=== PATIENT | female | born 1995 | race Caucasian/White ===

== ENCOUNTER 2017-04-01 18:54 | Emergency (ER) | payer OTHER ==
[~2017-04-01] VITALS: Ht 175.3 cm; Wt 69.3 kg
[~2017-04-01 18:54] MED LIST: BCPILLS PO; IBUP-1050 PO; SUMA50TA15 PO
[2017-04-01 19:00] VITALS: TEMP 37; Ht 175.3 cm; Wt 69.3 kg
[2017-04-01] MEDS ORDERED: KETOROLAC TROMETHAMINE 30 MG/ML VIAL IV STA (19:17)
[2017-04-01] MEDS ORDERED: LORAZEPAM 2 MG/ML 1 ML VIAL IV STA (19:17)
[2017-04-01] MEDS ORDERED: SODIUM CHLORIDE 0.9% 1000ML 1,000 ML IV STA ×2 (19:17)
[2017-04-01] MEDS ORDERED: METOCLOPRAMIDE HCL INJ 5 MG/ML 2 ML VIAL IV STA (19:17)
--- NOTE | 2017-04-01 19:32 | EMERGENCY ROOM VISIT NOTE ---
History Report prepared by Angelaibe: Selina Carlton Under the Supervision of: Dr. Akin Guaman M.D. First contact with patient: 19:06 Chief Complaint: NEURO SYMPTOMS Stated Complaint: DOUBLE VISION History of Present Illness The patient is a 21 year old female who presents to the Emergency Room with complaints of intermittent double vision beginning an hour and a half ago. The patient has a history of migraines. She notes taking her migraine medication last night and states she woke up this morning feeling normal. She states she is having a difficult time focusing on things in front of her. She notes some jaw tightness and feels like her tongue is too big for mouth. These symptoms started at the same time as her double vision. She denies any fever, cough, nausea, vomiting or urinary burning. The patient currently has her period. The patient notes drinking one alcohol beverage 4 hours ago. Per mother, the patient has a history of some occasional anxiety and panic attacks. Source of History: patient Onset: hour an a half ago Position: eye (bilateral) Quality: other (double vision) Associated Symptoms: No fevers, No cough, No nausea, No vomiting, No urinary symptoms Note: She notes some jaw tightness and feeling as if her tongue feels too big for mouth Review of Systems See HPI for pertinent positives and negatives. A total of ten systems were reviewed and were otherwise negative. Past Medical & Surgical Medical Problems: (1) Migraine Surgical Problems: (1) History of wisdom tooth extraction Family History Patient reports no known family medical history. Social History Smoking Status: Never Smoker Alcohol Use: occasionally Drug Use: none Marital Status: single Housing Status: lives with roommate Occupation Status: [employer] student Current/Historical Medications Scheduled Control Pills ( Control Pills), 1 TAB PO DAILY Scheduled PRN Ibuprofen (Advil), 200-600 MG PO Q6H PRN for Pain Sumatriptan Succinate (Imitrex), 50 MG PO UD PRN for Migraine Allergies Coded Allergies: No Known Allergies (Unverified , 04/03/16) Physical Exam Vital Signs Date Time Temp Pulse Resp B/P (MAP) Pulse Ox O2 Delivery O2 Flow Rate FiO2 04/01/17 21:37 87 16 126/68 99 04/01/17 20:37 80 74 122/69 99 04/01/17 19:00 37.0 99 22 150/100 100 Room Air Physical Exam GENERAL: Awake, alert, anxious-appearing, tremulous in no distress HENT: Normocephalic, atraumatic. Oropharynx unremarkable. EYES: Normal conjunctiva. Sclera non-icteric. No dysconjugate gaze with extraocular movements, no nystagmus. NECK: Supple. No nuchal rigidity. FROM. No JVD. RESPIRATORY: Clear to auscultation. CARDIAC: Regular rate, normal rhythm. Extremities warm and well perfused. Pulses equal. ABDOMEN: Soft, non-distended. No tenderness to palpation. No rebound or guarding. No masses. RECTAL: Deferred. MUSCULOSKELETAL: Chest examination reveals no tenderness. The back is symmetrical on inspection without obvious abnormality. There is no CVA tenderness to palpation. No joint edema. LOWER EXTREMITIES: Calves are equal size bilaterally and non-tender. No edema. No discoloration. NEURO: Normal sensorium. No sensory or motor deficits noted. SKIN: No rash or jaundice noted. Medical Decision & Procedures Laboratory Results 04/01/17 19:30 Red Blood Count 5.08, Mean Corpuscular Volume 88.0, Mean Corpuscular Hemoglobin 30.9, Mean Corpuscular Hemoglobin Concent 35.1, Mean Platelet Volume 10.5, Neutrophils (%) (Auto) 55.6, Lymphocytes (%) (Auto) 35.7, Monocytes (%) (Auto) 6.5, Eosinophils (%) (Auto) 1.8, Basophils (%) (Auto) 0.3, Neutrophils # (Auto) 4.86, Lymphocytes # (Auto) 3.12, Monocytes # (Auto) 0.57, Eosinophils # (Auto) 0.16, Basophils # (Auto) 0.03 04/01/17 19:30 Test 04/01/17 19:20 04/01/17 19:30 Urine Color YELLOW Urine Appearance CLEAR (CLEAR) Urine pH 6.0 (4.5-7.5) Urine Specific [place] 1.015 (1.000-1.030) Urine Protein NEG (NEG) Urine Glucose (UA) NEG (NEG) Urine Ketones NEG (NEG) Urine Occult Blood NEG (NEG) Urine Nitrite NEG (NEG) Urine Bilirubin NEG (NEG) Urine Urobilinogen NEG (NEG) Urine Leukocyte Esterase NEG (NEG) Urine Test NEG (NEG) White Blood Count 8.75 K/uL (4.8-10.8) Red Blood Count 5.08 M/uL (4.2-5.4) Hemoglobin 15.7 g/dL (12.0-16.0) Hematocrit 44.7 % (37-47) Mean Corpuscular Volume 88.0 fL (80-100) Mean Corpuscular Hemoglobin 30.9 pg (25-34) Mean Corpuscular Hemoglobin Concent 35.1 g/dl (32-36) Platelet Count 223 K/uL (130-400) Mean Platelet Volume 10.5 fL (7.4-10.4) Neutrophils (%) (Auto) 55.6 % Lymphocytes (%) (Auto) 35.7 % Monocytes (%) (Auto) 6.5 % Eosinophils (%) (Auto) 1.8 % Basophils (%) (Auto) 0.3 % Neutrophils # (Auto) 4.86 K/uL (1.4-6.5) Lymphocytes # (Auto) 3.12 K/uL (1.2-3.4) Monocytes # (Auto) 0.57 K/uL (0.11-0.59) Eosinophils # (Auto) 0.16 K/uL (0-0.5) Basophils # (Auto) 0.03 K/uL (0-0.2) RDW Standard Deviation 39.9 fL (36.4-46.3) RDW Coefficient of Variation 12.4 % (11.5-14.5) Immature Granulocyte % (Auto) 0.1 % Immature Granulocyte # (Auto) 0.01 K/uL (0.00-0.02) Anion Gap 7.0 mmol/L (3-11) Est Creatinine Clear Calc Drug Dose 110.0 ml/min Estimated GFR () 113.5 Estimated GFR (Non- 97.9 BUN/Creatinine Ratio 10.8 (10-20) Calcium Level 9.7 mg/dl (8.5-10.1) Laboratory results reviewed by me Medications Administered Medications (Trade) Dose Ordered Sig/Shantanu Route Start Time Stop Time Status Last Admin Dose Admin Sodium Chloride 1,000 ml @ 999 mls/hr Q1H1M STAT IV 04/01/17 19:17 04/01/17 20:17 DC 04/01/17 19:17 999 MLS/HR Sodium Chloride 1,000 ml @ 999 mls/hr Q1H1M STAT IV 04/01/17 19:17 04/01/17 20:17 DC 04/01/17 19:17 999 MLS/HR Metoclopramide HCl (Reglan Inj) 10 mg NOW STAT IV 04/01/17 19:17 04/01/17 19:20 DC 04/01/17 19:46 10 MG Lorazepam (Ativan Inj) 0.5 mg NOW STAT IV 04/01/17 19:17 04/01/17 19:19 DC 04/01/17 19:46 0.5 MG Ketorolac Tromethamine (Toradol Inj) 30 mg NOW STAT IV 04/01/17 19:17 04/01/17 19:19 DC 04/01/17 19:47 30 MG ED Course 1907: The patient was evaluated in room C6. A complete history and physical exam was performed. 1916: Toradol Inj 30 mg IV, Ativan Inj 0.5 mg IV, Reglan Inj 10 mg IV, Sodium Chloride 1000 ml @ 999 mls/hr IV, Sodium Chloride 1000 ml @ 999 mls/hr IV. 2119: I reassessed the patient. She feels better and is drowsy. 2135: I reevaluated the patient. Discussed results and discharge instructions: She verbalized understanding and agreement. The patient is ready for discharge. Medical Decision I reviewed the patient's past medical history, medications, and the nursing notes as described above. Differential diagnosis: complex migraine, lyme, pseudotumor, stroke, intracranial hemorrhage, brain mass, dehydration, electrolyte, UTI, panic attack. The patient is a 21 y/o woman with a pmhx of migraines who presents to the ED with acute onset double vision HYPNOTHERAPIST per HPI. On arrival the patient appears anxious/tremulous. AFVSS. Neuro exam grossly intact with no dysconjugate gaze. Cerebellar intact with normal [id number], alternating palms, [id number]. Labs unremarkable. Patient given migraine cocktail including ativan with good effect. Sx resolved. I d/w patient and family that given resolutino of sx after tx, sx most likely complex migraine. However, if still concerned we could consider CT scan and addtional more invasive testing. However, patient and mother preferring d/c given resolution of sx. Findings and plan for follow-up reviewed with patient. Patient agreeable and d/c'd per discharge instructions. Medication Reconcilliation Current Medication List: was personally reviewed by me Blood Pressure Screening Patient's blood pressure: Normal blood pressure Impression Primary Impression: Diplopia Additional Impression: Migraine Scribe Attestation The scribe's documentation has been prepared under my direction and personally reviewed by me in its entirety. I confirm that the note above accurately reflects all work, treatment, procedures, and medical decision making performed by me. Departure Information Dispostion Home / Self-Care Referrals No Doctor, Assigned (PCP) Forms HOME CARE DOCUMENTATION FORM, IMPORTANT VISIT INFORMATION, WORK / SCHOOL INSTRUCTIONS Patient Instructions ED Double Vision, ED Headache Migraine, My [facility] Additional Instructions Please follow up with your primary care physician in the next 1-3 days for re- evaluation. The exact cause of your symptoms at this time is unclear however it may have been likely due to a complex migraine. Symptoms resolved after a migraine treatment. Otherwise, your exam and lab results did not show signs of an emergent condition at this time. Return to the emergency department for worsening symptoms as described in the accompanying instructions. Problem Qualifiers
[2017-04-01 19:37] LABS: URINE APPEARANCE CLEAR (CLEAR); URINE BILIRUBIN NEG (NEG); URINE COLOR YELLOW; URINE NITRITE NEG (NEG); URINE SPECIFIC GRAVITY 1.015 (1.000-1.030); UROBILINOGEN NEG (NEG); ZZUR CULT IF INDIC CLEAN CATCH NO
[2017-04-01 19:41] LABS: MANUAL MICROSCOPIC REQUIRED? NO; REVIEW REQ? NO
[2017-04-01 19:50] LABS: BASO % 0.3 %; BASO ABS # 0.03 K/uL (0-0.2); COMPLETE YES; EOS % 1.8 %; HEMATOCRIT 44.7 % (37-47); IG% 0.1 %; LYMPH % 35.7 %; LYMPH ABS # 3.12 K/uL (1.2-3.4); MEAN CORPUSCULAR HEMOGLOBIN 30.9 pg (25-34); MEAN CORPUSCULAR HGB CONC 35.1 g/dl (32-36); MEAN PLATELET VOLUME 10.5 fL (7.4-10.4); MONO % 6.5 %; NEUT % 55.6 %; PLATELET COUNT 223 K/uL (130-400); RED BLOOD COUNT 5.08 M/uL (4.2-5.4); WHITE BLOOD COUNT 8.75 K/uL (4.8-10.8)
[2017-04-01 20:10] LABS: BUN/CREATININE RATIO 10.8 (10-20); CALCIUM 9.7 mg/dl (8.5-10.1); CREATININE 0.86 mg/dl (0.60-1.20); POTASSIUM 3.8 mmol/L (3.5-5.1)
[2017-04-01 21:37] VITALS: BP 126/68; PULSE 87; O2SAT 99
== END 2017-04-01 21:37 | disposition home or self-care (01) ==
LOC: C.EDB 18:57 → C.EDC 21:37
DX: H53.2 Diplopia (principal); G43.909 Migraine, unspecified, not intractable, without status migrainosus